=== PATIENT | male | born 1960 | race Two or more races ===

== ENCOUNTER 2016-11-11 11:24 | Emergency (ER) | payer SELFPAY ==
[~2016-11-11] VITALS: Ht 167.6 cm; Wt 77.1 kg
[2016-11-11 12:56] VITALS: BP 171/99
== END 2016-11-11 12:56 | disposition home or self-care (01) ==
LOC: ER 11:26
DX: S40.012A Contusion of left shoulder, initial encounter (principal); M25.522 Pain in left elbow; I10 Essential (primary) hypertension; E78.00 Pure hypercholesterolemia, unspecified; Y09 Assault by unspecified means; Y93.9 Activity, unspecified; Y92.9 Unspecified place or not applicable; Y99.8 Other external cause status
CPT/HCPCS: 99281; A4606; Z7610; Z7502

== ENCOUNTER 2016-12-09 08:38 | Emergency (ER) | payer BC ==
[~2016-12-09] VITALS: Ht 165.1 cm; Wt 70.3 kg
[2016-12-09 08:49] VITALS: BP 156/90
[2016-12-09 11:40] LABS: CANNABINOID, URINE NEGATIVE (NEGATIVE); PHENCYCLIDINE SCREEN,URINE NEGATIVE (NEGATIVE)
== END 2016-12-09 12:38 ==
LOC: ER 08:39
DX: R44.1 Visual hallucinations (principal); F15.10 Other stimulant abuse, uncomplicated; I10 Essential (primary) hypertension; E78.00 Pure hypercholesterolemia, unspecified; F17.210 Nicotine dependence, cigarettes, uncomplicated
CPT/HCPCS: 80305; 99285; A4606; Z7610

== ENCOUNTER 2016-12-15 19:22 | Emergency (ER) | payer SELFPAY ==
[~2016-12-15] VITALS: Ht 165.1 cm; Wt 86.2 kg
[2016-12-15 19:26] VITALS: BP 130/89
== END 2016-12-15 20:03 | disposition left against medical advice (07) ==
LOC: ER 19:25
DX: Z53.21 Procedure and treatment not carried out due to patient leaving prior to being seen by health care provider (principal)
CPT/HCPCS: A4606; Z7610

== ENCOUNTER 2016-12-28 20:45 | Emergency (ER) | payer MEDICAID ==
[2016-12-29] MEDS ORDERED: METO-304 PO (14:35)
[2016-12-29] MEDS ORDERED: ASPI81TA2 PO (14:35)
[2016-12-29] MEDS ORDERED: ATOR10TA PO (14:35)
[2016-12-29] MEDS ORDERED: CLOP75TA2 PO (14:35)
== END 2016-12-28 21:52 | disposition left against medical advice (07) ==
LOC: ER 20:47
DX: Z53.21 Procedure and treatment not carried out due to patient leaving prior to being seen by health care provider (principal)

== ENCOUNTER 2016-12-29 13:04 | Emergency (ER) | payer MEDICAID ==
[~2016-12-29] VITALS: Ht 165.1 cm; Wt 81.6 kg
[2016-12-29 13:30] LABS: BASOPHILS # (AUTO) 0.2 /CMM (0.0-0.2); BASOPHILS % (AUTO) 1.4 % (0.0-2.0); DIFF TOTAL % 100 %; EOSINOPHILS % (AUTO) 0.3 % (0.0-6.0); HEMATOCRIT 40 % (39-51); HEMOGLOBIN 13.4 g/dL (13.5-17.5); LYMPHOCYTES # (AUTO) 1.8 /CMM (0.8-4.8); LYMPHOCYTES % (AUTO) 12.2 % (20.0-44.0); MEAN CORPUSCULAR HEMOGLOBIN 31 PG (26.0-33.0); MEAN CORPUSCULAR HGB CONC 33 g/dl (31.0-36.0); MEAN CORPUSCULAR VOLUME 92 fL (80-96); MONOCYTES # (AUTO) 0.3 /CMM (0.1-1.30); MONOCYTES % (AUTO) 1.7 % (2.0-12.0); NEUTROPHILS # (AUTO) 12.7 /CMM (1.8-8.9); NEUTROPHILS % (AUTO) 84.4 % (43.0-81.0); PLATELET COUNT (AUTO) 407 /CMM (150-450); RED BLOOD CELL COUNT(AUTO) 4.38 MIL/uL (4.5-6.0)
[2016-12-29] MEDS ORDERED: IV NS 0.9% 1,000 ML BAG IV ONE (13:30)
[2016-12-29] MEDS ORDERED: ASPIRIN 81 MG TAB.CHEW PO ONE (13:30)
[2016-12-29] MEDS ORDERED: ASPIRIN 81 MG TAB.CHEW ONE (13:31)
[2016-12-29] MEDS ORDERED: IV NS 0.9% 1,000 ML ONE (13:31)
[2016-12-29] MEDS ORDERED: IV SET PRIMARY 1 EA INFUS.SET MC ONE (13:31)
[2016-12-29 13:43] LABS: ANION GAP 18 (5-14); CALCIUM, SERUM 9.1 mg/dL (8.5-10.1); CARBON DIOXIDE 24 mmol/L (21-32); CHLORIDE 103 mmol/L (98-107); CREATININE 2.3 mg/dL (0.6-1.3); GFR 29 mL/min (>60); GLUCOSE 91 mg/dL (74-106); POTASSIUM 5.1 mmol/L (3.5-5.1); SODIUM SERUM 140 mmol/L (136-145); UREA NITROGEN, BLOOD 43 mg/dL (7-18)
[2016-12-29 13:49] LABS: ACETAMINOPHEN 0 ug/ml (10-30); ALANINE AMINOTRANSFERASE 44 U/L (12-78); ASPARTATE AMINOTRANSFERASE 83 U/L (15-37); BILIRUBIN,DIRECT 0.2 mg/dL (0.0-0.2); BILIRUBIN,TOTAL 0.8 mg/dL (0.2-1.0); INDIRECT BILIRUBIN 0.6 mg/dL (0.0-1.1); SALICYLATE 3.5 mg/dL (2.8-20.0); TOTAL PROTEIN, SERUM 7.1 g/dL (6.4-8.2)
[2016-12-29 13:51] LABS: TROPONIN I 0.094 ng/mL (0.00-0.056)
[2016-12-29] MEDS ORDERED: ATOR10TA PO (14:35)
[2016-12-29] MEDS ORDERED: METO-304 PO (14:35)
[2016-12-29] MEDS ORDERED: CLOP75TA2 PO (14:35)
[2016-12-29] MEDS ORDERED: ASPI81TA2 PO (14:35)
[2016-12-29] MEDS ORDERED: ZOLPIDEM TARTRATE 5 MG TABLET PO PRN (15:30)
[2016-12-29] MEDS ORDERED: MAGNESIUM HYDROXIDE 30 ML UDC PO PRN (15:30)
[2016-12-29] MEDS ORDERED: IV NS 0.9% 1,000 ML IV SCH (15:30)
[2016-12-29] MEDS ORDERED: HYDROCODONE/APAP 5/325MG 1 EACH TABLET PO PRN (15:30)
[2016-12-29] MEDS ORDERED: Z GUARD REMEDY 2 OZ OINT TP PRN (15:30)
[2016-12-29] MEDS ORDERED: ONDANSETRON HCL/PF 4 MG/2 ML VIAL IVP PRN (15:30)
[2016-12-29] MEDS ORDERED: ACETAMINOPHEN 325 MG TABLET PO PRN (15:30)
[2016-12-29] MEDS ORDERED: NITROGLYCERIN 0.4 MG/TAB BOTTLE SL PRN (15:30)
[2016-12-29] MEDS ORDERED: MAG HYDROX/AL HYDROX/SIMETH 30 ML UDC PO PRN (15:30)
[2016-12-29 15:42] LABS: CREATINE KINASE MB 43.2 ng/mL (0-3.6)
[2016-12-29 16:17] VITALS: BP 152/99
[2016-12-29] MEDS ORDERED: IV NS 0.9% 1,000 ML IV ONE (17:00)
[2016-12-29] MEDS ORDERED: ATORVASTATIN 40 MG TABLET PO SCH (22:00)
[2016-12-30] MEDS ORDERED: PANTOPRAZOLE 40 MG TABLET.DR PO SCH (07:30)
[2016-12-30] MEDS ORDERED: CLOPIDOGREL BISULFATE 75 MG TABLET PO SCH (09:00)
[2016-12-30] MEDS ORDERED: METOPROLOL SUCCINATE 50 MG TAB.SR.24H PO SCH (09:00)
[2016-12-30] MEDS ORDERED: ASPIRIN 81 MG TAB.CHEW PO SCH (09:00)
== END 2016-12-29 16:19 | disposition left against medical advice (07) ==
LOC: ER 13:05
DX: I21.4 Non-ST elevation (NSTEMI) myocardial infarction (principal); N17.9 Acute kidney failure, unspecified; D72.829 Elevated white blood cell count, unspecified; F15.10 Other stimulant abuse, uncomplicated; E78.00 Pure hypercholesterolemia, unspecified; I10 Essential (primary) hypertension; R74.8 Abnormal levels of other serum enzymes; Z79.82 Long term (current) use of aspirin
CPT/HCPCS: 36415; 71010-TC; 80048-TC; 80076-TC; 82550-TC; 82553-TC; 84484-TC; 85025-TC; A4606; G0480; G6039-TC; J7030; Z7610

== ENCOUNTER 2017-04-27 11:29 | Emergency (ER) | payer MEDICAID, OTHER ==
[~2017-04-27] VITALS: Ht 165.1 cm; Wt 97.5 kg
[~2017-04-27 11:29] MED LIST: ASPI81TA2 PO; ATOR10TA PO; CLOP75TA2 PO; METO-304 PO
[2017-04-27 11:34] VITALS: BP 164/95
== END 2017-04-27 13:06 | disposition home or self-care (01) ==
LOC: ER 11:30
DX: M79.605 Pain in left leg (principal); M54.2 Cervicalgia; I10 Essential (primary) hypertension; E78.00 Pure hypercholesterolemia, unspecified; F17.200 Nicotine dependence, unspecified, uncomplicated; W01.0XXA Fall on same level from slipping, tripping and stumbling without subsequent striking against object, initial encounter; Y92.89 Other specified places as the place of occurrence of the external cause; Y93.89 Activity, other specified; Y99.8 Other external cause status
CPT/HCPCS: A4606; Z7610

== ENCOUNTER 2021-09-01 17:18 | Emergency (ER) | payer MEDICAID ==
[~2021-09-01] VITALS: Ht 167.6 cm; Wt 102.1 kg
[~2021-09-01 17:18] MED LIST changes: +ASPI-1169 PO; -ASPI81TA2 PO; +CLOP75TA15 PO; -CLOP75TA2 PO; -METO-304 PO; +METO-357 PO
--- NOTE | 2021-09-01 17:50 | NUR ---
BIB SELF AFTER GOING TO CLINIC TODAY BECAUSE OF AN ABNORMAL EKG. DENIES CHEST PAIN, SOB, N/V, DIAPHORESIS. COMP[employer]ENT [employer]PER[employer] AT BEDSIDE. NORMAL EKG. ATTACHED TO MONITOR. ELEVATED BP NOTED AT 193/88.
--- NOTE | 2021-09-01 17:59 | NUR ---
X RAY AT BEDSIDE
[2021-09-01] MEDS ORDERED: AMLODIPINE BESYLATE 5 MG TABLET PO ONE (18:00)
--- NOTE | 2021-09-01 18:07 | NUR ---
Bill duffy in [facility] - 09/01/21 at 1811 by SAMUEL BLOOD OBTAINED AND SENT TO LAB
--- NOTE | 2021-09-01 18:14 | NUR ---
BLOOD SAMPLE OBTAINED AND SENT TO LAB
[2021-09-01 18:19] LABS: BASOPHILS # (AUTO) 0.1 K/uL (0.0-0.2); BASOPHILS % (AUTO) 0.5 % (0.0-2.0); EOSINOPHILS % (AUTO) 3.2 % (0.0-6.0); HEMATOCRIT 44 % (39-51); LYMPHOCYTES # (AUTO) 2.2 K/uL (0.8-4.8); LYMPHOCYTES % (AUTO) 20.8 % (20.0-44.0); MEAN CORPUSCULAR HGB CONC 34 g/dl (31.0-36.0); MEAN CORPUSCULAR VOLUME 91 fL (80-96); MONOCYTES # (AUTO) 0.7 K/uL (0.1-1.30); MONOCYTES % (AUTO) 7.2 % (2.0-12.0); NEUTROPHILS # (AUTO) 7.1 K/uL (1.8-8.9); NEUTROPHILS % (AUTO) 68.3 % (43.0-81.0); PLATELET COUNT (AUTO) 294 K/uL (150-450); RED BLOOD CELL COUNT(AUTO) 4.82 MIL/uL (4.5-6.0); WHITE BLOOD COUNT (AUTO) 10.4 K/uL (4.3-11.0)
[2021-09-01] MEDS ORDERED: AMLODIPINE BESYLATE 5 MG TABLET ONE (18:22)
[2021-09-01 18:59] LABS: CALCIUM, SERUM 8.5 mg/dL (8.5-10.1); CREATININE 1.1 mg/dL (0.6-1.3); POTASSIUM 3.6 mmol/L (3.5-5.1)
--- NOTE | 2021-09-01 19:15 | NUR ---
REC'D REPORT FROM CHAPIS PAGAN FOR [facility]
[2021-09-01] MEDS ORDERED: IBUP-1957 PO (19:19)
[2021-09-01] MEDS ORDERED: AMLO10TA4 PO (19:19)
--- NOTE | 2021-09-01 19:33 | NUR ---
Patient discharged to home in stable condition. Written and verbal after care instructions given. Patient verbalizes understanding of instruction. Pt ambulatory with a steady gait
[2021-09-01 19:38] VITALS: BP 170/99
== END 2021-09-01 19:33 | disposition home or self-care (01) ==
LOC: ER 17:25
DX: M25.561 Pain in right knee (principal); G89.29 Other chronic pain; I10 Essential (primary) hypertension; E78.00 Pure hypercholesterolemia, unspecified; F17.200 Nicotine dependence, unspecified, uncomplicated; Z91.19 Patient's noncompliance with other medical treatment and regimen; Z60.2 Problems related to living alone; Z79.899 Other long term (current) drug therapy
CPT/HCPCS: 36415; 71045-TC; 80048-TC; 85025-TC